=== PATIENT | male | born 2000 | race Caucasian/White ===

== ENCOUNTER → 2022-04-20 | Outpatient (CLI) | payer OTHER ==
--- NOTE | 2022-04-20 15:16 | Diagnostic Imaging Report ---
PROCEDURE: CT head without contrast. TECHNIQUE: Multiple contiguous axial images were obtained through the brain without the use of intravenous contrast. Auto Exposure Controls were utilized during the CT exam to meet ALARA standards for radiation dose reduction. INDICATION: Left eye bruising and injury. FINDINGS: The ventricles and sulci are within normal limits. No sulcal effacement or midline shift is identified. No acute intra-axial or extra-axial hemorrhage is detected. The cisterns are patent. The zygomatic arches appear to be intact. The orbital parrish appear to be intact. No orbital wall fracture is seen. Both globes are unremarkable. The visualized paranasal sinuses are clear. IMPRESSION: 1. No acute intracranial process is detected. 2. No evidence of orbital fracture. Dictated by: Dictated on workstation # [id number]
== END ==
LOC: RAD 14:44
PROVIDERS: ATTEND Optometrist
DX: S05.92XA Unspecified injury of left eye and orbit, initial encounter (principal)
CPT/HCPCS: 70450